=== PATIENT | male | born 1950 | race American Indian/Alaskan Native ===

== ENCOUNTER 2018-11-11 07:35 | Day surgery (SDC) | payer OTHER, MEDICARE ==
[2018-11-11 08:32] VITALS: BMI 27.3
[2018-11-11] MEDS ORDERED: Midazolam 2 MG/2 ML VIAL ONE (09:45)
[2018-11-11] MEDS ORDERED: Lidocaine Hydrochloride 5 ML INJ ONE (09:46)
[2018-11-11] MEDS ORDERED: Propofol 10 mg/ml Inj (20 ML) ONE (09:46)
[2018-11-11] MEDS ORDERED: Lactated Ringer's 500 ML IV ONE (09:50)
[2018-11-11 10:45] VITALS: TEMP 97.2
[2018-11-11 11:11] VITALS: PULSE 52; O2SAT 97
[2018-11-11 12:01] VITALS: BP 138/81; RESP 14
== END 2018-11-11 12:00 | disposition home or self-care (01) ==
LOC: C.ENDO 07:35
PROVIDERS: ATTEND Internal Medicine Gastroenterology
DX: D12.2 Benign neoplasm of ascending colon (principal); D12.5 Benign neoplasm of sigmoid colon; K64.8 Other hemorrhoids
CPT/HCPCS: 45380; 88305; J2704; J7120